=== PATIENT | male | born 1975 | race Two or more races ===

== ENCOUNTER 2020-04-15 13:59 | Inpatient (IN) | payer MEDICAID, OTHER, SELFPAY ==
[~2020-04-15] VITALS: Ht 188 cm; Wt 82.7 kg
[~2020-04-15 13:59] MED LIST: IBUP400T22 PO
[2020-04-15 16:28] LABS: Basophils # (auto) 0 10 ^3/uL (0-0.2); Basophils % (auto) 0.4 % (0.0-2.0); Eosinophils # (auto) 0 10 ^3/uL (0-0.8); Hematocrit 47.4 % (41.0-53.0); Hemoglobin 16.6 g/dL (13.5-17.5); Lymphocytes # (auto) 0.7 10 ^3/uL (0.4-5.4); Lymphocytes % (auto) 9.1 % (10.0-50.0); Mean Corpuscular Hgb Conc. 35.1 g/dL (32.0-36.0); Mean Corpuscular Volume 82.8 fL (80.0-100.0); Monocytes # (auto) 0.8 10 ^3/uL (0-1.3); Monocytes % (auto) 10.1 % (0.0-12.0); Neutrophils # (auto) 6.2 10 ^3/uL (1.6-8.6); Neutrophils % (auto) 80.4 % (37.0-80.0); Nucleated Red Blood Cells % 0.1 %; Platelet Count (auto) 285 10^3/uL (140-450); Red Blood Cells 5.73 10^6/uL (4.5-5.90); Red Cell Distribution Width 13.3 % (11.8-14.3); White Blood Cell 7.7 10^3/uL (4.4-10.8)
[2020-04-15] MEDS ORDERED: methylPREDNISolone SOD SUCC 125 MG/2 ML VL IV ONE (16:30)
[2020-04-15] MEDS ORDERED: DOXYCYCLINE 100 MG TAB/CAP PO ONE (16:30)
[2020-04-15] MEDS ORDERED: SODIUM CHLORIDE 0.9% 1,000 ML IV ONE (16:30)
[2020-04-15] MEDS ORDERED: ACETAMINOPHEN 325 MG TAB PO ONE (16:30)
[2020-04-15] MEDS ORDERED: cefTRIAXone 1GM/50ML D5W 50 ML IV ONE (16:30)
[2020-04-15 16:46] LABS: Albumin 3.5 g/dL (3.4-5.0); Anion Gap 7 (5-15); Blood Urea Nitrogen 10 mg/dL (7-18); Calcium 8.4 mg/dL (8.5-10.1); Carbon Dioxide 25 mmol/L (21-32); Chloride 98 mmol/L (98-107); Glucose 92 mg/dL (74-106); INR 0.99 (0.9-1.15); Partial Thromboplastin Time 29.1 sec (23.0-31.2); Potassium 4.1 mmol/L (3.5-5.1); Sodium 130 mmol/L (136-145)
[2020-04-15 16:50] LABS: Alanine Aminotransferase 127 U/L (16-61); Alkaline Phosphatase 122 U/L (45-117); Aspartate Aminotransferase 106 U/L (15-37); BUN/Creatinine Ratio 10.6; Bilirubin, Total 1.2 mg/dL (0.2-1.0); GFR African American 113 mL/min; GFR Non-African American 93 mL/min; Total Protein 8.6 g/dL (6.4-8.2)
[2020-04-15] MEDS ORDERED: MORPHINE SULF INJ 2 MG/ML SYRINGE 1ML IV PRN ×3 (18:00→18:15)
[2020-04-15] MEDS ORDERED: NITROGLYCERIN 0.4 MG SL TAB SL PRN ×2 (18:00→18:15)
[2020-04-15] MEDS ORDERED: ALUM & MAG HYDROX-SIMETH LIQ(MAALOX) 30 ML PO PRN (18:15)
[2020-04-15] MEDS ORDERED: LORazepam 0.5 MG TAB PO PRN (18:15)
[2020-04-15] MEDS ORDERED: ACETAMINOPHEN 500 MG TAB PO PRN (18:15)
[2020-04-15] MEDS ORDERED: HYDROcodone-ACET 5/325MG TAB PO PRN (18:15)
[2020-04-15] MEDS ORDERED: DOCUSATE SOD 100 MG CAP PO PRN (18:15)
[2020-04-15] MEDS ORDERED: REMDESIVIR PER PHARMACY 0 ML IV SCH (18:15)
[2020-04-15] MEDS ORDERED: FUROSEMIDE 20 MG/2 ML VIAL IV ONE (18:15)
[2020-04-15] MEDS ORDERED: ONDANSETRON HCL 4 MG/2 ML VIAL IV PRN (18:15)
[2020-04-15 22:52] LABS: Magnesium 2.4 mg/dL (1.6-2.6)
[2020-04-15 23:50] LABS: Cholesterol 144 mg/dL (< 200)
[2020-04-15 23:51] LABS: HDL Cholesterol 39 mg/dL (40-59); LDL Cholesterol 85 mg/dL (< 100); Triglycerides 103 mg/dL (< 150)
[2020-04-16] MEDS: ENOXAPARIN SOD 40 MG/0.4 ML SYRINGE SC SCH ×3 (01:43→21:06)
[2020-04-16] MEDS: ATORVASTATIN 20 MG TAB PO SCH ×2 (01:43→21:05)
[2020-04-16] MEDS: FUROSEMIDE 20 MG/2 ML VIAL IV SCH ×2 (06:15→18:36)
[2020-04-16 07:32] LABS: Basophils # (auto) 0 10 ^3/uL (0-0.2); Basophils % (auto) 0.3 % (0.0-2.0); Eosinophils # (auto) 0 10 ^3/uL (0-0.8); Hematocrit 42.7 % (41.0-53.0); Hemoglobin 15.4 g/dL (13.5-17.5); Lymphocytes # (auto) 0.5 10 ^3/uL (0.4-5.4); Lymphocytes % (auto) 18.1 % (10.0-50.0); Mean Corpuscular Hemoglobin 29.6 pg (28.0-32.0); Mean Corpuscular Hgb Conc. 36.1 g/dL (32.0-36.0); Monocytes # (auto) 0.2 10 ^3/uL (0-1.3); Monocytes % (auto) 7.9 % (0.0-12.0); Neutrophils % (auto) 73.7 % (37.0-80.0); Platelet Count (auto) 283 10^3/uL (140-450); Red Blood Cells 5.21 10^6/uL (4.5-5.90); Red Cell Distribution Width 13.1 % (11.8-14.3); White Blood Cell 2.8 10^3/uL (4.4-10.8)
[2020-04-16 07:42] LABS: Potassium 3.5 mmol/L (3.5-5.1)
[2020-04-16 07:46] LABS: Albumin 3.6 g/dL (3.4-5.0); BUN/Creatinine Ratio 20.3
[2020-04-16 08:07] LABS: Bilirubin, Total 0.8 mg/dL (0.2-1.0); Calcium 8.8 mg/dL (8.5-10.1); Total Protein 8.2 g/dL (6.4-8.2)
[2020-04-16] MEDS: BUDESONIDE (INHALATION) 180 MCG IH IN SCH ×3 (08:13→22:08)
[2020-04-16] MEDS: DexAMETHasone SOD PHOS 10MG/1ML VIAL INJ IV SCH (10:13)
[2020-04-16] MEDS: ZINC SULFATE 220mg CAP or TAB PO SCH (10:13)
[2020-04-16] MEDS: CHOLECALCIFEROL (VITD3) 2,000 UNIT CAP/TAB PO SCH (10:13)
[2020-04-16] MEDS: DOXYCYCLINE 100MG/250ML 250 ML IV SCH ×2 (10:13→21:05)
[2020-04-16] MEDS: ASPirin 81 mg TAB PO SCH (10:13)
[2020-04-16] MEDS: ASCORBIC ACID 1,000 MG TAB PO SCH (10:13)
[2020-04-16] MEDS ORDERED: REMDESIVIR 200 MG in NS 210ml LOADING DOSE ADULT IV ONE (17:00)
[2020-04-16 18:26] VITALS: BP 130/79
[2020-04-17] VITALS: BP 115/64
[2020-04-17] MEDS: FUROSEMIDE 20 MG/2 ML VIAL IV SCH ×2 (05:27→17:26)
[2020-04-17 06:44] LABS: Potassium 3.7 mmol/L (3.5-5.1)
[2020-04-17 06:57] LABS: Albumin 3.4 g/dL (3.4-5.0); BUN/Creatinine Ratio 24.7; Bilirubin, Total 0.8 mg/dL (0.2-1.0); Total Protein 7.7 g/dL (6.4-8.2)
[2020-04-17 08:00] VITALS: BP 111/61
[2020-04-17] MEDS: DexAMETHasone SOD PHOS 10MG/1ML VIAL INJ IV SCH (09:57)
[2020-04-17] MEDS: ZINC SULFATE 220mg CAP or TAB PO SCH (09:57)
[2020-04-17] MEDS: CHOLECALCIFEROL (VITD3) 2,000 UNIT CAP/TAB PO SCH (09:57)
[2020-04-17] MEDS: ASCORBIC ACID 1,000 MG TAB PO SCH (09:57)
[2020-04-17] MEDS: ENOXAPARIN SOD 40 MG/0.4 ML SYRINGE SC SCH ×2 (09:57→21:12)
[2020-04-17] MEDS: DOXYCYCLINE 100MG/250ML 250 ML IV SCH ×2 (09:58→21:12)
[2020-04-17] MEDS: ASPirin 81 mg TAB PO SCH (09:58)
[2020-04-17 15:32] LABS: Urine Bacteria NONE SEEN /hpf (None Seen); Urine Blood Negative /uL (Negative); Urine Mucus FEW (None Seen); Urine Specific Gravity 1.027 (1.001-1.035); Urine WBC <1 /hpf (0 - 3)
[2020-04-17] MEDS: REMDESIVIR 100 MG in SODIUM CHL 0.9% 250 ML IV SCH (15:38)
[2020-04-17 15:49] LABS: Alcohol, Urine < 3.0 mg/dL (0-10); Amphetamine Screen, Urine NEGATIVE (NEGATIVE); Barbiturate Scree,Urine NEGATIVE (NEGATIVE); Benzodiazephine Screen, Urine NEGATIVE (NEGATIVE); Cannabinoid Screen, Urine NEGATIVE (NEGATIVE); Cocaine Screen, Urine NEGATIVE (NEGATIVE); Opiate Scree,Urine NEGATIVE (NEGATIVE); Phencyclidine Screen, Urine NEGATIVE (NEGATIVE)
[2020-04-17 15:54] VITALS: BP 110/68
[2020-04-17] MEDS: BUDESONIDE (INHALATION) 180 MCG IH IN SCH (20:04)
[2020-04-17] MEDS: ATORVASTATIN 20 MG TAB PO SCH (21:12)
[2020-04-18] VITALS: BP 112/71
[2020-04-18] MEDS: FUROSEMIDE 20 MG/2 ML VIAL IV SCH (05:33)
[2020-04-18 06:43] LABS: Potassium 3.3 mmol/L (3.5-5.1)
[2020-04-18 07:09] LABS: Albumin 3.1 g/dL (3.4-5.0); BUN/Creatinine Ratio 28.8; Bilirubin, Total 0.8 mg/dL (0.2-1.0); Calcium 8.6 mg/dL (8.5-10.1); Total Protein 7.1 g/dL (6.4-8.2)
[2020-04-18 08:00] VITALS: BP 120/70
[2020-04-18 09:00] VITALS: BP 120/70
[2020-04-18] MEDS: BUDESONIDE (INHALATION) 180 MCG IH IN SCH ×2 (09:29→18:24)
[2020-04-18] MEDS: DOXYCYCLINE 100MG/250ML 250 ML IV SCH ×2 (10:02→21:36)
[2020-04-18] MEDS: DexAMETHasone SOD PHOS 10MG/1ML VIAL INJ IV SCH (10:02)
[2020-04-18] MEDS: ENOXAPARIN SOD 40 MG/0.4 ML SYRINGE SC SCH ×2 (10:03→21:37)
[2020-04-18] MEDS: ASCORBIC ACID 1,000 MG TAB PO SCH (10:03)
[2020-04-18] MEDS: ASPirin 81 mg TAB PO SCH (10:03)
[2020-04-18] MEDS: CHOLECALCIFEROL (VITD3) 2,000 UNIT CAP/TAB PO SCH (10:03)
[2020-04-18] MEDS: ZINC SULFATE 220mg CAP or TAB PO SCH (10:03)
[2020-04-18] MEDS ORDERED: POTASSIUM CHL 20 Meq TABLET PO ONE (13:30)
[2020-04-18 16:00] VITALS: BP 118/71
[2020-04-18] MEDS: REMDESIVIR 100 MG in SODIUM CHL 0.9% 250 ML IV SCH (16:09)
[2020-04-18] MEDS: ALBUTEROL SULF HFA 90MCG INH 200DOSE IN PRN (20:21)
[2020-04-18 22:00] VITALS: BP 104/45
[2020-04-19] VITALS: BP 104/45
[2020-04-19] MEDS: BUDESONIDE (INHALATION) 180 MCG IH IN SCH ×2 (06:02→06:29)
[2020-04-19] MEDS: FUROSEMIDE 20 MG/2 ML VIAL IV SCH (06:13)
[2020-04-19 06:40] LABS: Basophils # (auto) 0 10 ^3/uL (0-0.2); Basophils % (auto) 0.1 % (0.0-2.0); Eosinophils # (auto) 0 10 ^3/uL (0-0.8); Eosinophils % (auto) 0.1 % (0.0-7.0); Hematocrit 42.5 % (41.0-53.0); Hemoglobin 15.2 g/dL (13.5-17.5); Lymphocytes % (auto) 10.3 % (10.0-50.0); Mean Corpuscular Hemoglobin 29.7 pg (28.0-32.0); Mean Corpuscular Hgb Conc. 35.7 g/dL (32.0-36.0); Mean Corpuscular Volume 83.1 fL (80.0-100.0); Monocytes # (auto) 1.1 10 ^3/uL (0-1.3); Monocytes % (auto) 11.3 % (0.0-12.0); Neutrophils # (auto) 7.8 10 ^3/uL (1.6-8.6); Neutrophils % (auto) 78.2 % (37.0-80.0); Nucleated Red Blood Cells % 0.1 %; Platelet Count (auto) 375 10^3/uL (140-450); Red Blood Cells 5.11 10^6/uL (4.5-5.90); Red Cell Distribution Width 13.1 % (11.8-14.3); White Blood Cell 9.9 10^3/uL (4.4-10.8)
[2020-04-19] MEDS: ALBUTEROL SULF HFA 90MCG INH 200DOSE IN PRN (07:38)
[2020-04-19 08:00] VITALS: BP 128/69
[2020-04-19 08:46] LABS: Potassium 3.7 mmol/L (3.5-5.1)
[2020-04-19 08:57] LABS: BUN/Creatinine Ratio 25.3; Bilirubin, Total 0.9 mg/dL (0.2-1.0); Calcium 8.5 mg/dL (8.5-10.1)
[2020-04-19] MEDS: DOXYCYCLINE 100MG/250ML 250 ML IV SCH ×2 (10:00→21:39)
[2020-04-19] MEDS: ASCORBIC ACID 1,000 MG TAB PO SCH (10:00)
[2020-04-19] MEDS: CHOLECALCIFEROL (VITD3) 2,000 UNIT CAP/TAB PO SCH (10:00)
[2020-04-19] MEDS: DexAMETHasone SOD PHOS 10MG/1ML VIAL INJ IV SCH (10:48)
[2020-04-19] MEDS: POTASSIUM CHL 20 Meq TABLET PO SCH (10:49)
[2020-04-19] MEDS: ASPirin 81 mg TAB PO SCH (10:49)
[2020-04-19] MEDS: ZINC SULFATE 220mg CAP or TAB PO SCH (10:49)
[2020-04-19] MEDS: ENOXAPARIN SOD 40 MG/0.4 ML SYRINGE SC SCH ×2 (10:50→21:39)
[2020-04-19] MEDS: REMDESIVIR 100 MG in SODIUM CHL 0.9% 250 ML IV SCH (15:00)
[2020-04-19 16:00] VITALS: BP 111/68
[2020-04-19 16:43] VITALS: BP 104/63
[2020-04-20] VITALS: BP 135/69
[2020-04-20] MEDS: FUROSEMIDE 20 MG/2 ML VIAL IV SCH (06:03)
[2020-04-20] MEDS: BUDESONIDE (INHALATION) 180 MCG IH IN SCH ×2 (06:29→21:02)
[2020-04-20] MEDS: ALBUTEROL SULF HFA 90MCG INH 200DOSE IN PRN ×2 (07:04→21:02)
[2020-04-20 08:00] VITALS: BP 106/62
[2020-04-20] MEDS: DexAMETHasone SOD PHOS 10MG/1ML VIAL INJ IV SCH (09:45)
[2020-04-20] MEDS: DOXYCYCLINE 100MG/250ML 250 ML IV SCH (09:45)
[2020-04-20] MEDS: POTASSIUM CHL 20 Meq TABLET PO SCH (09:46)
[2020-04-20] MEDS: ASPirin 81 mg TAB PO SCH (09:46)
[2020-04-20] MEDS: CHOLECALCIFEROL (VITD3) 2,000 UNIT CAP/TAB PO SCH (09:46)
[2020-04-20] MEDS: ENOXAPARIN SOD 40 MG/0.4 ML SYRINGE SC SCH ×2 (09:46→21:12)
[2020-04-20] MEDS: ZINC SULFATE 220mg CAP or TAB PO SCH (09:46)
[2020-04-20] MEDS: ASCORBIC ACID 1,000 MG TAB PO SCH (09:46)
[2020-04-20] MEDS: REMDESIVIR 100 MG in SODIUM CHL 0.9% 250 ML IV SCH (15:00)
[2020-04-20 16:00] VITALS: BP 109/64
[2020-04-20] MEDS: DOXYCYCLINE 100 MG TAB/CAP PO SCH (21:11)
[2020-04-21] VITALS: BP 110/68
[2020-04-21 08:00] VITALS: BP 100/66
[2020-04-21] MEDS: CHOLECALCIFEROL (VITD3) 2,000 UNIT CAP/TAB PO SCH (10:00)
[2020-04-21] MEDS: ENOXAPARIN SOD 40 MG/0.4 ML SYRINGE SC SCH (10:00)
[2020-04-21] MEDS ORDERED: FUROSEMIDE 20 MG TAB PO SCH (10:00)
[2020-04-21] MEDS: ASCORBIC ACID 1,000 MG TAB PO SCH (10:00)
[2020-04-21] MEDS ORDERED: DexAMETHasone 4 MG TAB PO SCH (10:00)
[2020-04-21] MEDS: ASPirin 81 mg TAB PO SCH (10:31)
[2020-04-21] MEDS: ZINC SULFATE 220mg CAP or TAB PO SCH (10:32)
[2020-04-21] MEDS: POTASSIUM CHL 20 Meq TABLET PO SCH (10:32)
[2020-04-21] MEDS: DOXYCYCLINE 100 MG TAB/CAP PO SCH (10:33)
[2020-04-21 13:36] VITALS: BP 100/66
== END 2020-04-21 15:03 | disposition home or self-care (01) | DRG 720 ==
LOC: ER 13:59 → TELE 14:00 → TELE-WESTW 04-16 18:22
PROVIDERS: ADMIT Hospitalist; ATTEND Internal Medicine
PROC: XW033E5 Introduction of Remdesivir Anti-infective into Peripheral Vein, Percutaneous Approach, New Technology Group 5 (ICD-10-PCS; principal; 2020-04-15)
DX: A41.89 Other specified sepsis (principal); J96.01 Acute respiratory failure with hypoxia; U07.1 COVID-19; J12.89 Other viral pneumonia; E87.1 Hypo-osmolality and hyponatremia; E66.9 Obesity, unspecified; E78.5 Hyperlipidemia, unspecified; E86.0 Dehydration; R53.81 Other malaise; R74.01 Elevation of levels of liver transaminase levels; R74.8 Abnormal levels of other serum enzymes; R79.82 Elevated C-reactive protein (CRP); Z79.82 Long term (current) use of aspirin; Z82.49 Family history of ischemic heart disease and other diseases of the circulatory system; Z68.25 Body mass index [BMI] 25.0-25.9, adult
CPT/HCPCS: 36415; 71045; 80053; 80061; 80307; 81001; 82306; 82728; 83036; 83605; 83615; 83735; 83880; 84443; 84484; 85025; 85379; 85610; 85730; 86141; 87040; 87086; 87426; 87804; 93005; 94640; 96365; 96375; G0378; J0696; J1100; J3490